=== PATIENT | female | born 1980 ===

== ENCOUNTER 2019-09-10 00:16 | Inpatient (IN) | payer OTHER ==
[2019-09-10] MEDS ORDERED: hydrALAZINE 20 MG/ML VIAL SLOW IVP PRN ×2 (00:50→22:28)
--- NOTE | 2019-09-10 00:58 | PDOC.FPROB ---
FMR OB H&P: HPI - History of Present Illness Chief Complaint: contractions Indentification: @ 40.3 WGA History of Present Illness: 38 YO @ 40.4 WGA presenting for evaluation for regular painful contractions that began earlier today. Reports feeling pain in her lower abdomen and back that has been ~5 minutes apart for the last hour or so & increasingly painful prompting her coming to L&D. Reports seeing some bloody show earlier today but denies any LOF, loss of mucus plug, heavy VB or abnormal d/c. + FM. 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 - Family History Family History: non-contributory FMR OB H&P: Medications - Current Allergies/Adverse Reactions: Allergies Allergy/AdvReac Type Severity Reaction Status Date / Time No Known Allergies Allergy Verified 09/10/19 00:44 FMR OB H&P: ROS - Review of Systems General: denies: fever/chills, fatigue Eyes: denies: eye pain, vision changes ENT: denies: nasal congestion, sore throat Cardiovascular: denies: chest pain, edema Respiratory: denies: cough, congestion Gastrointestinal: reports: abdominal pain. denies: nausea, vomiting Genitourinary (Female): denies: dysuria, hematuria Musculoskeletal: reports: pain (back pain). denies: decrease range of motion Neurologic: denies: numbness, headache Integumentary: denies: itching, rash Psychological: reports: paranoia. denies: depression, anxiety FMR OB H&P: Vital Signs - Maternal Vital signs: BP: 133/67 HR: 81 Temp: 98.5F - Heart Tones Baseline: 140 Variability: minimal Acceleration: absent Deceleration: absent Category: category 2 [place] contractions every: 3-5 minutes FMR OB H&P: Physical Exam - Physical Exam General: NAD, awake, alert and oriented HEENT: MMM, grossly normal vision, grossly normal hearing Neck: supple, FROM Heart: RRR, normal S1/S2, no murmurs/rubs/gallops, pulses present, no edema General: CTAB, no respiratory distress, good air movement, no rales/rhonchi, no wheezing, no retractions Abdomen: gravid Musculoskeletal: normal gait and station, FROM in all four extremities Neurological: cranial nerves II through XII intact, sensation to pain,touch and proprioception grossly normal, no focal deficit Skin: no rash, good tugor Lymphatic: no unusual bruising or bleeding, no purpura Psychiatric: intact recent and remote memory, good judgement and insight, normal mood and affect - Pelvic Exam Vulva: normal hair distribution, appropriate declan stage, no lesions Deviation from normal: bloody show w/ cervical check SVE: Membranes: intact Presentation: cephalic FMR OB H&P: A/P - Problem List (1) Post term over 40 weeks Current Visit: Yes Status: Acute Code(s): O48.0 - POST-TERM (2) AMA (advanced maternal age) primigravida 35+ Current Visit: Yes Status: Chronic Code(s): O09.519 - SUPERVISION OF ELDERLY PRIMIGRAVIDA, UNSPECIFIED TRIMESTER Qualifiers: Trimester: third trimester Qualified Code(s): O09.513 - Supervision of elderly primigravida, third trimester (3) HSV infection Current Visit: Yes Status: Chronic Code(s): B00.9 - HERPESVIRAL INFECTION, UNSPECIFIED Disposition: 38YO @ 40.4 WGA presenting to evaluation for painful contractions. # Contractions, r/o labor - Patient puja q3-5 minutes on monitor w/ cat II strip as variability has been minimal since arrival, baseline in 140s. No decels but no accels as well. - SVE now & was reportedly closed in the office on Thursday. - Will continue to monitor w/ [place] & NST & recheck in ~2 hours. Low threshold for admission since patient is already post dates. - Will PO hydrate & give mom juice to perk up baby. # post-term sIUP - Aware, see plan above. # HSV+ - Noted on chart review & patient reported that she has been taking valtrex QD for PPX. # AMA - 38YO. On ASA for pre-e PPX. Dispo: Will continue close monitoring on L&D with plans to recheck cervix in ~2 hours to assess for change & possible admission. Discussion: Date/Time: 09/10/19 0055 This H&P was discussed with Dr. Galindo who agrees with the above documentation and plan.
[2019-09-10 01:01] VITALS: BMI 38.9
[2019-09-10] MEDS ORDERED: NS w/ Oxytocin 10 units 500 ML IV PRN (02:58)
[2019-09-10] MEDS ORDERED: Misoprostol 200 MCG TAB PR PRN (02:58)
[2019-09-10] MEDS ORDERED: Carboprost 250 MCG/ML AMP IM PRN (02:58)
[2019-09-10] MEDS ORDERED: Diphenoxylate HCl/Atropine Tablet PO PRN ×2 (02:58)
[2019-09-10] MEDS ORDERED: Ibuprofen 800 MG TAB PO PRN (02:58)
[2019-09-10] MEDS ORDERED: Lidocaine 1% (PF) 30 ML VIAL SC PRN (02:58)
[2019-09-10] MEDS ORDERED: Promethazine HCl 25 MG/ML VIAL IM PRN ×4 (02:58→22:28)
[2019-09-10] MEDS ORDERED: Methylergonovine 0.2 MG/ML VIAL IM PRN (02:58)
[2019-09-10] MEDS ORDERED: Misoprostol 100 MCG TAB VAG PRN (02:58)
[2019-09-10] MEDS ORDERED: Ondansetron PF 4 MG/2 ML Vial IVP PRN ×4 (02:58→22:28)
[2019-09-10] MEDS ORDERED: NS / Oxytocin 40 units/1000ml 1,000 ML IV PRN (02:58)
[2019-09-10] MEDS ORDERED: Penicillin G Potassium 5 MILL.UNITS in Sodium Chloride 0.9% 100 ML IVPB SCH (03:00)
--- NOTE | 2019-09-10 03:00 | PDOC.EVN ---
Event Note - Event Note Event Note: OBGYN Faculty Triage A 0300 I have seen and evaluated this patient at bedside 38 yo G1 at 40 weels 4 days with CTX. Scheduld for IOL tomorrow Thursday PM. No VB , no LOF. Patient of Dr Rachel. review of Systems: complete ROS performed and negative as per HPI Past Medical and surgical HX: reviewed: non-contributory Allergies: none Vitals stable and afebrile. Normotensive Strip reviewed by me: Cat 1 with CTX every 4-5 minutes EXAM: 1cm Assessment/Plan: 38 yo G1 at 40 weeks 4 days at 1cm but with pain as an issue. OK for admission now rather than IOL tomorrow as 40 weeks 4 days with CTX Cytotec if protocol allows per her own CTX frequency RN to notifiy Dr rachel GBS pos...ABX Plan D/W the patient and her partner. Please see FM H&P from Dr Burgess
--- NOTE | 2019-09-10 03:02 | PDOC.LDPN ---
Labor & Delivery Progress Note - Subjective Subjective: painful contractions - Objective Vital signs reviewed and normal: yes General: breathing through contractions Dilation: 1 Effacement: 75% Station: -1 FHT: category 1, variability present [place] contractions every: 3-5 minutes Resuscitative measures: maternal IV fluids - Assessment (1) Post term over 40 weeks Code(s): O48.0 - POST-TERM Current Visit: Yes Status: Acute (2) AMA (advanced maternal age) primigravida 35+ Code(s): O09.519 - SUPERVISION OF ELDERLY PRIMIGRAVIDA, UNSPECIFIED TRIMESTER Current Visit: Yes Status: Chronic Qualifiers: Trimester: third trimester Qualified Code(s): O09.513 - Supervision of elderly primigravida, third trimester (3) HSV infection Code(s): B00.9 - HERPESVIRAL INFECTION, UNSPECIFIED Current Visit: Yes Status: Chronic Plan: continue plan of care -: 38YO @ 40.4 WGA presenting to evaluation for painful contractions. # post-term sIUP in labor: - Patient presented with painful contractions q3-5 minutes on monitor which has persisted since last cervical check ~2 hours ago. FHTs reassuring w/ baseline of 140 & multiple accels now since presentation. - Repeat SVE now unchanged at /-1 but patient is still having regular painful contractions & given this and with her being post-date will admit to L& D for intrapartum mangement & pain control. - Continue routine intrapartum management. # HSV+ - Noted on chart review & patient reported that she has been taking valtrex QD for PPX. # AMA - 38YO. On ASA for pre-e PPX. Dispo: Will admit to L&D for intrapartum monitoring & management and pain control.
[2019-09-10 03:43] LABS: Hemoglobin 12.2 g/dL (12.0-16.0); Mean Corpuscular HGB CONC 33.1 g/dL (32.0-36.0); Mean Corpuscular Hemoglobin 28.2 pg (27.0-31.0); Mean Corpuscular Volume 85.1 fL (78.0-98.0); Mean Platelet Volume 8.5 fL (7.4-10.4); Platelet Count 265 thou/uL (130-400); RBC Distribution Width 14.8 % (11.5-14.5); Red Blood Cell (RBC) Count 4.34 mill/uL (4.20-5.40); White Blood Cell (WBC) Count 16.4 thou/uL (4.8-10.8)
[2019-09-10] MEDS: Butorphanol Tartrate 1 MG/ML VIAL SLOW IVP PRN ×3 (03:43→07:57)
[2019-09-10 04:28] LABS: HBSAg Index 0.22 S/CO (0-0.99); Hep B Surf Ag Non-Reactive S/CO (NonReactive)
[2019-09-10 04:29] LABS: Syphilis Antibody Nonreactive (Nonreactive); Syphilis Antibody Index 0.04 S/CO (<1.00 Non-Reactive)
[2019-09-10] MEDS: Lactated Ringer's 1,000 ML IV SCH (06:58)
[2019-09-10] MEDS: Penicillin G 2.5 MILL.units 2.5 MILL.UNITS in Premix Bag 1 BAG IVPB SCH ×2 (07:57→12:27)
[2019-09-10] MEDS ORDERED: Fentanyl 4 mcg/Bup 0.1% Cadd 100 ML ONE ×3 (09:00→18:25)
[2019-09-10] MEDS ORDERED: Bupivacaine/Epinephrine 0.25% 30 ML VIAL ONE (09:04)
[2019-09-10] MEDS ORDERED: Acetaminophen 325 MG TAB PO PRN (09:38)
[2019-09-10] MEDS ORDERED: EPHEDRINE 25 MG/5 ML SYRINGE SLOW IVP PRN (09:38)
[2019-09-10] MEDS ORDERED: Naloxone HCl 0.4 mg/ml Vial IVP PRN ×4 (09:38→17:48)
[2019-09-10] MEDS ORDERED: diphenhydrAMINE 50 MG/ML VIAL IVP PRN ×2 (09:38→17:48)
[2019-09-10] MEDS ORDERED: Lactated Ringer's 500 ML IV PRN (09:38)
[2019-09-10] MEDS ORDERED: Fentanyl 4 mcg/Bupivacaine 0.1% Cassette 100 ML EPIDURAL SCH (09:45)
[2019-09-10] MEDS ORDERED: Communication Order-Pharmacy FS SCH ×2 (09:45→18:00)
[2019-09-10] MEDS ORDERED: Bicitra 30 ML UDCUP ONE (16:32)
[2019-09-10] MEDS ORDERED: Azithromycin 500 MG VIAL ONE (16:33)
[2019-09-10] MEDS ORDERED: CEFAZOLIN 2 GM in Premix Bag 1 BAG IVPB SCH (16:45)
[2019-09-10] MEDS ORDERED: Azithromycin 500 MG in Sodium Chloride 0.9% 250 ML 250 ML IVPB SCH (16:45)
[2019-09-10] MEDS ORDERED: Bicitra 30 ML UDCUP PO SCH (16:45)
[2019-09-10] MEDS ORDERED: Lidocaine 2% MPF 10 ML AMP (For Epidural Use) ONE (17:09)
[2019-09-10] MEDS ORDERED: Ondansetron PF 4 MG/2 ML Vial ONE (17:09)
[2019-09-10] MEDS ORDERED: Oxytocin 10 UNITS/ML VIAL ONE ×2 (17:09→17:52)
[2019-09-10] MEDS ORDERED: Carboprost 250 MCG/ML AMP ONE ×2 (17:33→17:34)
[2019-09-10] MEDS ORDERED: Methylergonovine 0.2 MG/ML VIAL ONE (17:34)
[2019-09-10] MEDS ORDERED: Tranexamic Acid 1,000 MG/10 ML VIAL ONE (17:37)
[2019-09-10] MEDS ORDERED: EPHEDRINE 25 MG/5 ML SYRINGE ONE (17:46)
[2019-09-10] MEDS ORDERED: Fentanyl 100 MCG/2 ML VIAL ONE (17:46)
[2019-09-10] MEDS ORDERED: Ondansetron HCl/PF 4 MG/2 ML Vial IVP PRN (17:48)
[2019-09-10] MEDS ORDERED: Promethazine HCl 25 MG SUPP PR PRN (17:48)
[2019-09-10] MEDS ORDERED: HYDROmorphone 2 MG/ML VIAL SLOW IVP PRN (17:48)
[2019-09-10] MEDS ORDERED: Meperidine HCl/PF 25 MG/ML VIAL SLOW IVP PRN (17:48)
[2019-09-10] MEDS ORDERED: Ketorolac Tromethamine 30 MG/ML VIAL IVP PRN (17:48)
[2019-09-10] MEDS ORDERED: L&D-Morphine 4 MG/ML VIAL SLOW IVP PRN (17:48)
[2019-09-10] MEDS ORDERED: Naloxone HCl 0.4 mg/ml Vial IV PRN (17:48)
[2019-09-10] MEDS ORDERED: metroNIDAZOLE 500 MG in Premix Bag 1 BAG IVPB SCH (18:00)
[2019-09-10] MEDS ORDERED: Ketorolac Tromethamine 30 MG/ML VIAL IVP SCH (18:00)
[2019-09-10] MEDS ORDERED: Lactated Ringer's 1,000 ML IV SCH (18:30)
[2019-09-10] MEDS ORDERED: Tranexamic Acid 1,000 MG in Sodium Chloride 0.9% 250 ML 250 ML IVPB SCH (18:30)
[2019-09-10] MEDS ORDERED: Bisacodyl 10 MG SUPP PR PRN (22:28)
[2019-09-10] MEDS ORDERED: Meperidine HCl/PF 25 MG/ML VIAL IM PRN (22:28)
[2019-09-10] MEDS ORDERED: Simethicone Chewable 80 MG TAB PO PRN (22:28)
[2019-09-10] MEDS ORDERED: diphenhydrAMINE 25 MG CAP PO PRN (22:28)
[2019-09-10] MEDS ORDERED: Lanolin Ointment 7 GM TUBE TOP PRN (22:28)
[2019-09-10] MEDS ORDERED: NS / Oxytocin 40 units/1000ml 1,000 ML IV SCH (22:28)
[2019-09-10] MEDS ORDERED: HYDROcodone/Acetaminophen 5/325 mg Tablet PO PRN (22:28)
--- NOTE | 2019-09-10 22:57 | OP ---
DATE OF PROCEDURE: 09/10/2019 Report type is . RESIDENT SURGEON: Brenton Beach DO PROCEDURE: Primary low-transverse section. PREOPERATIVE DIAGNOSES: 1. Term intrauterine . 2. Arrest of dilation. POSTOPERATIVE DIAGNOSES: 1. Term intrauterine , delivered. 2. Arrest of dilation. 3. Atonic hemorrhage. ANESTHESIA: Epidural. INDICATIONS: Patient is 38-year-old, G1, P0, at 40 and 4 weeks gestation, who presented for regular painful contractions. Patient made cervical change to 6 cm and remained unchanged for greater than 6 hours. PROCEDURE IN DETAIL: After risks, benefits, and alternatives were explained to the patient, she gave informed consent. Preoperative antibiotics included 2 g Ancef IV in addition to 500 mg of azithromycin. Patient was taken to the operating room and epidural anesthesia was bolused. She was placed in the supine position with a left tilt, prepped and draped in usual sterile fashion. A Pfannenstiel incision was made with a scalpel and carried down to the level of fascia, which was sharply nicked. The fascial cut was extended bilaterally with Velez scissors. The inferior and superior edges of the cut fascial edges were elevated with Jordy and underlying rectus muscles were sharply and bluntly dissected free. The recti were divided digitally and retracted manually. Peritoneum was entered bluntly and retracted manually. Bladder blade was placed. A low-transverse score was then made with a scalpel. The uterus was entered in the midline with the scalpel. Clear fluid was seen. Hysterotomy was extended manually. was noted to be vertex and easily delivered by fundal pressure. Mouth and nares were bulb suctioned. The cord was clamped and cut and grossly normal female was handed to awaiting nurse. The cord blood was obtained. Placenta was manually extracted and found to be intact with 3-vessel cord discarded. The uterus was then externalized and noted to be extremely boggy. At which point, Hemabate was given in addition to Methergine. The endometrium was curetted with a dry lap. Bladder blade was replaced and the uterus was closed with a running locking 1-0 Monocryl suture from the maternal left aspect of the midline. During this time , the uterus is again noted to be boggy and in addition to Pitocin, the patient also received TXA and an additional dose of Hemabate. The hysterotomy was then closed from maternal right position near midline and again the uterus was noted to be boggy, at which point, decision was made to insert Bakri balloon, which was successfully placed and the hysterotomy was then closed with a two clamped edges of the 1-0 Monocryl suture. Following this, hemostasis was noted. The abdomen was then irrigated with saline and suctioned free of clots. Small bleeders were bovied with Bovie cauterization. The uterus was then internalized and the hysterotomy was again noted to be hemostatic. Ther peritoneum was repaired with a running suture of 3-0 Vicryl. The fascia was then closed with a running nonlocking 0 PDS suture. Subcutaneous tissue was then irrigated and bleeders were bovied with Bovie cauterization. The skin was approximated with kelsy and a pressure dressing was placed. All counts were correct. The patient tolerated the procedure well , was taken to the recovery room in stable condition. ESTIMATED BLOOD LOSS: 1100 mL. COMPLICATIONS: Atonic hemorrhage. SPECIMENS: Cord blood sent to lab for blood type. FINDINGS: Grossly normal female infant with Apgars of eight and nine. Grossly normal placenta with 3-vessel cord discarded. DRAINS: [place] to gravity draining clear urine. Bakri balloon with scant blood in the collection bag Patient will receive an additional dose of TXA in the period and a redraw H and H will be placed and she will recover in Labor and Delivery with monitoring of continued bleeding from the Bakri balloon. QBL is pending at this time. Job ID: [id number] MTDD
[2019-09-11] MEDS: CEFAZOLIN 2 GM in Premix Bag 1 BAG IVPB SCH ×3 (01:17→16:40)
[2019-09-11] MEDS: metroNIDAZOLE 500 MG in Premix Bag 1 BAG IVPB SCH ×3 (03:30→19:46)
[2019-09-11 05:59] LABS: Hemoglobin 9.3 g/dL (12.0-16.0); Mean Corpuscular HGB CONC 31.8 g/dL (32.0-36.0); Mean Corpuscular Hemoglobin 27.3 pg (27.0-31.0); Mean Corpuscular Volume 85.8 fL (78.0-98.0); Mean Platelet Volume 7.9 fL (7.4-10.4); Platelet Count 243 thou/uL (130-400); RBC Distribution Width 14.8 % (11.5-14.5); White Blood Cell (WBC) Count 15.2 thou/uL (4.8-10.8)
[2019-09-11] MEDS ORDERED: Adacel (T-DAP) 0.5 ML SYRINGE IM ONE (09:00)
[2019-09-11] MEDS: Docusate Calcium (SURFAK) 240 MG CAP PO SCH ×2 (09:08→22:01)
[2019-09-11] MEDS: Ferrous Sulfate 325 MG TAB PO SCH ×2 (09:08→22:01)
[2019-09-11] MEDS: Prenatal Vitamin 1 TAB PO SCH (09:08)
[2019-09-11] MEDS: Lactated Ringer's 1,000 ML IV SCH (09:47)
[2019-09-11] MEDS: HYDROcodone/Acetaminophen 5/325 mg Tablet PO PRN ×3 (09:53→18:27)
[2019-09-11] MEDS ORDERED: Ibuprofen 800 MG TAB PO SCH (18:00)
[2019-09-11] MEDS: Ibuprofen 800 MG TAB PO SCH (22:01)
[2019-09-12] MEDS: HYDROcodone/Acetaminophen 5/325 mg Tablet PO PRN ×3 (04:39→17:28)
[2019-09-12] MEDS: Ibuprofen 800 MG TAB PO SCH ×3 (06:14→21:07)
[2019-09-12] MEDS: Penicillin G 2.5 MILL.units 2.5 MILL.UNITS in Premix Bag 1 BAG IVPB SCH (06:40)
[2019-09-12] MEDS: Lactated Ringer's 1,000 ML IV SCH (06:41)
[2019-09-12] MEDS: metroNIDAZOLE 500 MG TAB PO SCH ×3 (09:52→21:08)
[2019-09-12] MEDS: Docusate Calcium (SURFAK) 240 MG CAP PO SCH ×2 (09:52→21:06)
[2019-09-12] MEDS: Ferrous Sulfate 325 MG TAB PO SCH ×2 (09:52→21:06)
[2019-09-12] MEDS: Cephalexin 250 MG CAP PO SCH ×3 (09:52→21:07)
[2019-09-12] MEDS: Prenatal Vitamin 1 TAB PO SCH (09:52)
[2019-09-13 01:16] VITALS: TEMP 98.7
[2019-09-13] MEDS: HYDROcodone/Acetaminophen 5/325 mg Tablet PO PRN ×2 (05:42→09:27)
[2019-09-13] MEDS: Ibuprofen 800 MG TAB PO SCH (06:21)
[2019-09-13 08:55] VITALS: BP 139/74
[2019-09-13] MEDS: Cephalexin 250 MG CAP PO SCH (09:26)
[2019-09-13] MEDS: Docusate Calcium (SURFAK) 240 MG CAP PO SCH (09:26)
[2019-09-13] MEDS: Prenatal Vitamin 1 TAB PO SCH (09:26)
[2019-09-13] MEDS: Ferrous Sulfate 325 MG TAB PO SCH (09:26)
[2019-09-13] MEDS: metroNIDAZOLE 500 MG TAB PO SCH (09:29)
== END 2019-09-13 11:05 | disposition home or self-care (01) | DRG 787 ==
LOC: L&D/OP 00:16 → L&D 03:02 → 3SW 09-11 14:24
PROVIDERS: ADMIT Family Medicine; ATTEND Family Medicine
PROC: 10D00Z1 Extraction of Products of Conception, Low, Open Approach (ICD-10-PCS; principal; 2019-09-10)
DX: O48.0 Post-term pregnancy (principal); O98.52 Other viral diseases complicating childbirth; O72.1 Other immediate postpartum hemorrhage; Z3A.40 40 weeks gestation of pregnancy; B00.1 Herpesviral vesicular dermatitis; O99.824 Streptococcus B carrier state complicating childbirth; O62.0 Primary inadequate contractions; Z37.0 Single live birth
CPT/HCPCS: 36415; 51702; 85027; 86780; 86850; 86900; 86901; 87340; 99285; J0456; J0595; J0690; J2001; J2210; J2405; J2540; J2590; J3010; J3490; J7050

== ENCOUNTER 2021-03-12 08:00 | Outpatient (CLI) | payer OTHER ==
[2019-09-07 18:05] LABS: SARS-CoV-2 MS2 Positive; SARS-CoV-2 N Gene Negative; SARS-CoV-2 S Gene Negative; SARS-CoV-2 by NAA Not Detected (NotDetected); SARS-CoV-2 orf1ab Negative
== END 2021-03-12 08:01 | disposition home or self-care (01) ==
LOC: LAB 08:00
PROVIDERS: ATTEND Family Medicine
DX: Z01.812 Encounter for preprocedural laboratory examination (principal); Z20.822 Contact with and (suspected) exposure to COVID-19
CPT/HCPCS: U0003